=== PATIENT | female | born 1950 ===

== ENCOUNTER 2016-08-24 22:55 | Observation (INO) | payer MEDICARE, BC ==
--- NOTE | 2016-08-25 00:03 | ED PDOC ---
HPI: Chest Pain Time Seen by Provider: 08/24/16 23:13 Chief Complaint (Nursing): High Blood Pressure Chief Complaint (Provider): chest pain, SOB History Per: Patient, Family (son ) History/Exam Limitations: no limitations Onset/Duration Of Symptoms: Mins Current Symptoms Are (Timing): Better Additional Complaint(s): 66yo female presents to the ED, brought by son, with c/o chest pain and SOB with minimal exertion. Son states they were walking a couple of blocks and patient got very out of breath. Patient admits to non-compliance with lasix at home. States she currently feels a little better but with some upper back pain and SOB. Past Medical History Reviewed: Historical Data, Nursing Documentation, Vital Signs Vital Signs: Last Vital Signs Temp 98.7 F 08/24/16 23:07 Pulse 78 08/25/16 04:06 Resp 16 08/25/16 04:06 BP 173/72 H 08/25/16 04:06 Pulse Ox 99 08/25/16 04:06 - Medical History PMH: No Chronic Diseases - Surgical History Surgical History: No Surg Hx - Family History Family History: States: No Known Family Hx - Allergies Allergies/Adverse Reactions: Allergies Allergy/AdvReac Type Severity Reaction Status Date / Time No Known Allergies Allergy Verified 08/24/16 23:06 Review of Systems ROS Statement: Except As Marked, All Systems Reviewed And Found Negative Cardiovascular: Positive for: Chest Pain Respiratory: Positive for: Shortness of Breath Musculoskeletal: Positive for: Back Pain (upper ) Physical Exam - Reviewed Nursing Documentation Reviewed: Yes Vital Signs Reviewed: Yes - Physical Exam Appears: Positive for: Well, No Acute Distress Head Exam: Positive for: ATRAUMATIC, NORMAL INSPECTION, NORMOCEPHALIC Skin: Positive for: Normal Color, Warm, Dry Eye Exam: Positive for: Normal appearance, EOMI, PERRL ENT: Positive for: Normal ENT Inspection Neck: Positive for: Normal, Painless ROM, Supple Cardiovascular/Chest: Positive for: Regular Rate, Rhythm. Negative for: Murmur , Tachycardia Respiratory: Positive for: Crackles (b/l at bases ). Negative for: Wheezing, Respiratory Distress Gastrointestinal/Abdominal: Positive for: Normal Exam, Soft. Negative for: Tenderness Back: Positive for: Normal Inspection. Negative for: L CVA Tenderness, R CVA Tenderness Extremity: Positive for: Normal ROM, Pedal Edema (2+ pitting edema left worse than right that patient states is chronic ). Negative for: Deformity Neurologic/Psych: Positive for: Alert, Oriented - Laboratory Results Result Diagrams: 08/24/16 23:59 08/24/16 23:59 - ECG O2 Sat by Pulse Oximetry: 99 Pulse Ox Interpretation: Normal (RA) Medical Decision Making Medical Decision Makin: Impression: CHF exacerbation Plan: Labs CXR reassess 130: Pt. to be admitted for CHF, spoke with Dr. Hopson who accepts admission. Scribe Attestation: Documented by Sabas Phillips acting as a scribe for Rod Hackett MD. Provider Scribe Attestation: All medical record entries made by the Scribe were at my direction and personally dictated by me. I have reviewed the chart and agree that the record accurately reflects my personal performance of the history, physical exam, medical decision making, and the department course for this patient. I have also personally directed, reviewed, and agree with the discharge instructions and disposition. Disposition - Clinical Impression Clinical Impression: CHF exacerbation - Patient ED Disposition Is Patient to be Admitted: Yes - Disposition Disposition Time: 01:30 Condition: STABLE
[2016-08-25 00:51] LABS: BASO % 0.4 % (0.0-2.0); EOS # 0.2 K/uL (0.0-0.7); EOS % 2.1 % (0.0-4.0); HEMATOCRIT 39.5 % (34.0-47.0); LYMPH # 2.6 K/uL (1.0-4.3); LYMPH % 32.1 % (20.0-40.0); MEAN CELL VOLUME 88.6 fl (81.0-99.0); MEAN CORPUSCULAR HEMOGLOBIN 29.3 pg (27.0-31.0); MEAN PLATELET VOLUME 9.6 fl (7.2-11.7); MONO # 0.6 K/uL (0.0-0.8); MONO % 6.9 % (0.0-10.0); NEUT # 4.8 K/uL (1.8-7.0); NEUT % 58.5 % (50.0-75.0); NRBC % 0.1 % (0.0-0.0); RED CELL DISTRIBUTION WIDTH 13.6 % (11.5-14.5); WHITE BLOOD COUNT 8.2 K/uL (4.8-10.8)
[2016-08-25 01:06] LABS: BLOOD UREA NITROGEN 13 mg/dl (7-17); CALCIUM 9.2 mg/dL (8.4-10.2); CARBON DIOXIDE 27 mmol/L (22-30); CHLORIDE 107 mmol/L (98-107); GFR AFRICAN-AMERICAN > 60; GLUCOSE,RANDOM 104 mg/dL (65-105); LIPASE 64 U/L (23-300); POTASSIUM 4.6 MMOL/L (3.6-5.0); SODIUM 142 mmol/l (132-148)
[2016-08-25 01:08] LABS: PARTIAL THROMBOPLASTIN TIME 23.5 SECONDS (23.3-32.5)
--- NOTE | 2016-08-25 09:11 | CARD ---
APPROVED REPORT EKG Measurement Heart [id number] VA [id number] <Conclusion> Normal sinus rhythm Normal ECG
--- NOTE | 2016-08-25 09:54 | HP ---
HISTORY OF PRESENT ILLNESS: The patient is a 66-year-old female who was admitted via the Emergency R o because of chest pains and shortness of breath on minimal exertion. She had been walking with he r son were just a few blocks and then became short of breath and was brought to the Emergency Room wh ere she was found to be in congestive heart failure. She was given IV diuretics and clinically impro laine. She indicates that she has been on blood pressure medications including Lasix, lisinopril, but has not been taking it compliantly. PAST MEDICAL HISTORY: Remarkable for hypertension. FAMILY HISTORY: Unremarkable. SOCIAL HISTORY: She does not smoke or drink. REVIEW OF SYSTEMS: Essentially remarkable for occasional shortness of breath and swelling of the leg s. PHYSICAL EXAMINATION: GENERAL: The patient is alert, oriented. Wants to go home. VITAL SIGNS: Blood pressure 173/72 with a pulse of 70, respirations 16-18 per minute. She is afebri le, O2 sat 99% on room air. SKIN: Shows fair turgor. HEENT: Pupils equal, react to light and accommodation. HEART: Regular S1, S2. LUNGS: Fair aeration with scattered bilateral rales and basal dullness. ABDOMEN: Soft, nontender, no organomegaly. BREASTS: Normal. EXTREMITIES: Shows 2+ pitting pedal edema. CENTRAL NERVOUS SYSTEM: Grossly intact. LABORATORY DATA: WBC 8.2, hemoglobin 13.0, platelet count of 226,000. Sodium 142, potassium 4.6, BU N 13, creatinine 0.7. Serum glucose 104. Chest x-ray official report pending. EKG results also pen ding. IMPRESSION: Congestive heart failure secondary to poor compliance of medication. Chest pain, one naik s to rule out acute coronary syndrome. Poor compliance to medications. ProBNP was 270 there is why the patient seems to be in heart failure. Troponin less than 0.012. PLAN: Echocardiogram, continue diuretics and antihypertensive medications, cardiology evaluation. Leonard amlaguer patient in hospital. Discharge in a.m. if clinically stable. Miguel Hopson MD cc: 62 TT: 08/25/2016 09:53:13 jn
--- NOTE | 2016-08-25 10:04 | RAD ---
PROCEDURE: CHEST RADIOGRAPH, 1 VIEW HISTORY: sob COMPARISON: None available. FINDINGS: LUNGS: Clear. PLEURA: No pneumothorax or pleural fluid seen. CARDIOVASCULAR: Normal. OSSEOUS STRUCTURES: No significant abnormalities. VISUALIZED UPPER ABDOMEN: Normal. OTHER FINDINGS: None. IMPRESSION: No active disease.
--- NOTE | 2016-08-25 12:37 | CP.PCM.CON ---
History of Present Illness - History of Present Illness History of Present Illness: 66 y/o h/f admitted with SOB/LEE Improved with lasix given in ER SOB worse when she walks Denies chest pains Pt claims that her Sx started 3 - 4 days ago She admits to noncompliance with lasix and diet Troponin: neg x 2 EKG: normal BNP: 270 PMH: HTN Hyperlipidemia CHF Review of Systems - Cardiovascular Cardiovascular: As Per HPI - Respiratory Respiratory: Dyspnea, Dyspnea on Exertion Past Patient History - Past Social History Smoking Status: Never Smoked - CARDIAC Hx Hypercholesterolemia: Yes Hx Hypertension: Yes - PSYCHIATRIC Hx Substance Use: No Meds Allergies/Adverse Reactions: Allergies Allergy/AdvReac Type Severity Reaction Status Date / Time No Known Allergies Allergy Verified 08/24/16 23:06 - Medications Medications: Current Medications Aspirin (Ecotrin) 81 mg PO DAILY [facility] Atorvastatin Calcium (Lipitor) 1 mg PO HS [facility] Furosemide (Lasix) 40 mg IVP DAILY [facility] Last Admin: 08/25/16 10:31 Dose: 40 mg Home Med (Raloxifene [Evista]) 1 tab PO DAILY [facility] Lisinopril (Zestril) 20 mg PO DAILY [facility] Last Admin: 08/25/16 10:30 Dose: 20 mg Zolpidem Tartrate (Ambien) 5 mg PO HS [facility] Physical Exam - Constitutional Appears: No Acute Distress - Head Exam Head Exam: NORMAL INSPECTION - Eye Exam Eye Exam: Normal appearance - ENT Exam ENT Exam: Normal Exam - Neck Exam Neck exam: Positive for: Normal Inspection - Respiratory Exam Respiratory Exam: Rales - Cardiovascular Exam Cardiovascular Exam: REGULAR RHYTHM - Extremities Exam Extremities exam: Positive for: pedal edema Results - Vital Signs Recent Vital Signs: Last Vital Signs Temp 98.2 F 08/25/16 07:55 Pulse 75 08/25/16 07:55 Resp 17 08/25/16 07:55 BP 159/84 H 08/25/16 10:31 Pulse Ox 96 08/25/16 07:55 - Labs Result Diagrams: 08/24/16 23:59 08/24/16 23:59 Labs: Laboratory Results - last 24 hr 08/25/16 10:40 Troponin I < 0.0120 Assessment & Plan (1) Acute on chronic left systolic heart failure Assessment and Plan: Agree with Lasix IV daily will follow Status: Acute (2) Essential (primary) hypertension Status: Acute (3) Mixed hyperlipidemia Status: Acute
--- NOTE | 2016-08-26 06:37 | CARD ---
APPROVED REPORT EKG Measurement Heart [id number] <Conclusion> Normal sinus rhythm Possible Left atrial enlargement Borderline ECG
--- NOTE | 2016-08-26 07:48 | CARD ---
APPROVED REPORT EXAM: Two-dimensional and M-mode echocardiogram with Doppler and color Doppler. Other Information Quality : FairRhythm : INDICATION 2D DIMENSIONS IVSd0.96 (0.7-1.1cm)LVDd4.44 (3.9-5.9cm) LVOT Diameter2.04 (1.8-2.4cm)PWd0.92 (0.7-1.1cm) IVSs1.19 (0.8-1.2cm)LVDs3.16 (2.5-4.0cm) FS (%) 28.8 %PWs1.44 (0.8-1.2cm) M-Mode DIMENSIONS Left Atrium (MM)3.78 (2.5-4.0cm)IVSd1.28 (0.7-1.1cm) Aortic Root2.57 (2.2-3.7cm)LVDd4.61 (4.0-5.6cm) Aortic Cusp Exc.1.62 (1.5-2.0cm)PWd1.36 (0.7-1.1cm) IVSs1.62 cmFS (%) 32 % LVDs3.14 (2.0-3.8cm)PWs1.47 cm Aortic Valve AoV Peak Wshgnawp016.2cm/sAoV VTI24.6cmAO Peak GR.6mmHg LVOT Peak Qayxqixt82.5cm/Rohit Mean GR.3mmHgAVA (VMAX)1.40cm2 Mitral Valve MV E Quyqpidm89.5cm/sMV DECEL [id number] A Ttcblfox42.2cm/s MV GHP16bdH/A ratio0.7MVA (PHT)2.91cm2 TDI Lateral E' Peak V11.00cm/sMedial E' Peak V11.00cm/sE/Lateral E'5.2 E/Medial E'5.2 Pulmonary Valve PV Peak Cfswxqbd758.3cm/s Tricuspid Valve TR Peak Gitvrtkc554ch/sRAP LNJKNGCB11ymHhAE Peak Gr.6mmHg ENYR58qmUm LEFT VENTRICLE The left ventricle is normal size. There is normal left ventricular wall thickness. Left ventricle systolic function is normal. The Ejection Fraction is 60-65%. There is normal LV segmental wall motion. Transmitral Doppler flow pattern is Grade I-abnormal relaxation pattern. RIGHT VENTRICLE The right ventricle is normal size. There is normal right ventricular wall thickness. The right ventricular systolic function is normal. ATRIA The left atrium size is normal. The right atrium size is normal. AORTIC VALVE The aortic valve is normal in structure and function. No aortic regurgitation is present. There is no aortic valvular stenosis. MITRAL VALVE The mitral valve is normal in structure. There is no evidence of mitral valve prolapse. There is no mitral valve stenosis. Mitral regurgitation is mild. TRICUSPID VALVE The tricuspid valve is normal in structure and function. There is no tricuspid valve regurgitation noted. PULMONIC VALVE The pulmonary valve is normal in structure and function. There is no pulmonic valvular regurgitation. GREAT VESSELS The aortic root is normal in size. The IVC is normal in size. PERICARDIAL EFFUSION The pericardium appears normal. <Conclusion> Images were suboptimal due to a poor echo window. The left ventricle is normal size. There is normal left ventricular wall thickness. There is normal LV segmental wall motion. Left ventricle systolic function is normal. The Ejection Fraction is 60-65%. Transmitral Doppler flow pattern is Grade I-abnormal relaxation pattern. Mitral regurgitation is mild.
[2016-08-26] MEDS ORDERED: RALOXIFENE PO SCH (09:00)
[2016-08-26] MEDS ORDERED: Enoxaparin 40 mg Syringe SC SCH (09:00)
--- NOTE | 2016-08-26 09:21 | CP.PCM.DIS ---
Provider - Provider Date of Admission: 08/25/16 09:24 Attending physician: Miguel Hopson MD Primary care physician: Candice Jin MD Time Spent in preparation of Discharge (in minutes): 32 Diagnosis - Discharge Diagnosis (1) Acute on chronic left systolic heart failure Status: Acute (2) CHF exacerbation Status: Acute (3) Essential (primary) hypertension Status: Acute (4) Mixed hyperlipidemia Status: Acute Hospital Course - Lab Results Lab Results: Most Recent Lab Values WBC 8.2 K/uL (4.8-10.8) 08/24/16 23:59 RBC 4.46 Mil/uL (3.80-5.20) 08/24/16 23:59 Hgb 13.0 g/dL (12.0-16.0) 08/24/16 23:59 Hct 39.5 % (34.0-47.0) 08/24/16 23:59 MCV 88.6 fl (81.0-99.0) 08/24/16 23:59 MCH 29.3 pg (27.0-31.0) 08/24/16 23:59 MCHC 33.0 g/dL (33.0-37.0) 08/24/16 23:59 RDW 13.6 % (11.5-14.5) 08/24/16 23:59 Plt Count 226 K/uL (130-400) 08/24/16 23:59 MPV 9.6 fl (7.2-11.7) 08/24/16 23:59 Neut % (Auto) 58.5 % (50.0-75.0) 08/24/16 23:59 Lymph % (Auto) 32.1 % (20.0-40.0) 08/24/16 23:59 [place] % (Auto) 6.9 % (0.0-10.0) 08/24/16 23:59 Eos % (Auto) 2.1 % (0.0-4.0) 08/24/16 23:59 Baso % (Auto) 0.4 % (0.0-2.0) 08/24/16 23:59 Neut # 4.8 K/uL (1.8-7.0) 08/24/16 23:59 Lymph # 2.6 K/uL (1.0-4.3) 08/24/16 23:59 [place] # 0.6 K/uL (0.0-0.8) 08/24/16 23:59 Eos # 0.2 K/uL (0.0-0.7) 08/24/16 23:59 Baso # 0.0 K/uL (0.0-0.2) 08/24/16 23:59 PT 9.8 SECONDS (9.6-11.2) 08/24/16 23:59 INR 0.94 (0.92-1.08) 08/24/16 23:59 APTT 23.5 SECONDS (23.3-32.5) 08/24/16 23:59 Sodium 142 mmol/l (132-148) 08/24/16 23:59 Potassium 4.6 MMOL/L (3.6-5.0) 08/24/16 23:59 Chloride 107 mmol/L (98-107) 08/24/16 23:59 Carbon Dioxide 27 mmol/L (22-30) 08/24/16 23:59 Anion Gap 13 (10-20) 08/24/16 23:59 BUN 13 mg/dl (7-17) 08/24/16 23:59 Creatinine 0.7 mg/dL (0.7-1.2) 08/24/16 23:59 Est GFR ( Amer) > 60 08/24/16 23:59 Est GFR (Non-Af Amer) > 60 08/24/16 23:59 Random Glucose 104 mg/dL (65-105) 08/24/16 23:59 Calcium 9.2 mg/dL (8.4-10.2) 08/24/16 23:59 Troponin I < 0.0120 ng/mL (0.00-0.120) 08/25/16 10:40 NT-Pro-B Natriuret Pep 270 pg/ml (0-900) 08/24/16 23:59 Lipase 64 U/L (23-300) 08/24/16 23:59 - Hospital Course Hospital Course: SOB AND PEDAL EDEMA RESOLVED NO CHEST PAINS Discharge Exam - Head Exam Head Exam: NORMAL INSPECTION - Eye Exam Eye Exam: EOMI, Normal appearance, PERRL Pupil Exam: NORMAL ACCOMODATION, PERRL - GI/Abdominal Exam GI & Abdominal Exam: Normal Bowel Sounds - Rectal Exam Rectal Exam: NORMAL INSPECTION - Neurological Exam Neurological exam: Alert, CN II-XII Intact, Normal Gait, Oriented x3, Reflexes Normal - Psychiatric Exam Psychiatric exam: Normal Affect, Normal Mood - Skin Skin Exam: Dry, Intact, Normal Color, Warm Discharge Plan - Follow Up Plan Condition: STABLE Disposition: HOME/ ROUTINE Patient education suggested?: Yes Additional Instructions: DISCHARGE TODAY ADVISED COMPLIANCE WITH MEDS AND DIET Referrals: Candice Jin MD [Primary Care Provider] -
--- NOTE | 2016-08-26 10:30 | CP.PCM.PN ---
Subjective - Date & Time of Evaluation Date of Evaluation: 08/26/16 Time of Evaluation: 10:00 - Subjective Subjective: Pt breathing better Echo: Good LV function EF: 60 - 65% No rales no edema Objective - Vital Signs/Intake and Output Vital Signs (last 24 hours): Temp Pulse Resp BP Pulse Ox 97.7 F 82 18 132/77 95 08/26/16 08:20 08/26/16 08:20 08/26/16 08:20 08/26/16 09:21 08/26/16 08:20 - Medications Medications: Current Medications Acetaminophen (Tylenol 325mg Tab) 650 mg PO Q4 PRN PRN Reason: Headache Last Admin: 08/25/16 23:12 Dose: 650 mg Amlodipine Besylate (Norvasc) 5 mg PO DAILY [facility] Last Admin: 08/26/16 09:22 Dose: 5 mg Aspirin (Ecotrin) 81 mg PO DAILY [facility] Last Admin: 08/26/16 09:21 Dose: 81 mg Atorvastatin Calcium (Lipitor) 10 mg PO HS [facility] Last Admin: 08/25/16 23:13 Dose: 10 mg Enoxaparin Sodium (Lovenox) 40 mg SC DAILY [facility] PRN Reason: Protocol Last Admin: 08/26/16 09:22 Dose: 40 mg Furosemide (Lasix) 40 mg IVP DAILY [facility] Last Admin: 08/26/16 09:21 Dose: 40 mg Home Med (Raloxifene [Evista]) 1 tab PO DAILY [facility] Last Admin: 08/26/16 09:23 Dose: 1 tab Lisinopril (Zestril) 20 mg PO DAILY [facility] Last Admin: 08/26/16 09:23 Dose: 20 mg Zolpidem Tartrate (Ambien) 5 mg PO HS [facility] Last Admin: 08/25/16 23:11 Dose: 5 mg - Labs Labs: PT 9.8 SECONDS (9.6-11.2) 08/24/16 23:59 INR 0.94 (0.92-1.08) 08/24/16 23:59 APTT 23.5 SECONDS (23.3-32.5) 08/24/16 23:59 Assessment and Plan (1) Acute on chronic left systolic heart failure Assessment & Plan: Pt doing better may be discharged Status: Acute (2) Essential (primary) hypertension Status: Acute (3) Mixed hyperlipidemia Status: Acute
[2016-08-26 12:30] VITALS: O2SAT 99
[2016-08-26 17:26] VITALS: BP 158/81; PULSE 98; RESP 20; TEMP 98.7
== END 2016-08-26 13:00 | disposition home or self-care (01) ==
LOC: H.ER 22:55 → H.ERHOLD 08-25 01:52 → OBSVTOIN 08-25 09:24 → INTOOBSV 08-25 09:24 → H.TEL 08-25 20:08
PROVIDERS: ADMIT Internal Medicine Pulmonary Disease; ATTEND Internal Medicine Pulmonary Disease
DX: I11.0 Hypertensive heart disease with heart failure (principal); I50.23 Acute on chronic systolic (congestive) heart failure; E78.2 Mixed hyperlipidemia; Z91.14 Patient's other noncompliance with medication regimen
CPT/HCPCS: 71010; 80048; 83690; 83880; 84484; 85025; 85610; 85730; 93005; 93306; 96374; 99284; G0378; J1650; J1940